=== PATIENT | female | born 1980 | race African-American/Black ===

== ENCOUNTER 2022-01-08 16:16 | Emergency (ER) | payer OTHER, SELFPAY ==
[2022-01-08 16:29] VITALS: BP 138/85; PULSE 90; RESP 18; TEMP 36.2; O2SAT 98
--- NOTE | 2022-01-08 17:16 | ED.URI ---
HPI - URI/Sore Throat General Chief Complaint: Upper Respiratory Infection Stated Complaint: Cough,Congestion,Shortness of Breath Time Seen by Provider: 01/08/22 17:09 Source: patient Mode of arrival: ambulatory Limitations: no limitations History of Present Illness HPI Narrative: patient presents today with a 2 day history of nasal congestion, rhinorrhea, nonproductive cough, shortness of breath with exertion, and intermittent wheezing. Denies fever. Reports history of asthma for which she uses her nebulizer treatments and inhalers with some relief. She has not tried any [id number]-slemrsb medication for her current symptoms. Related Data Home Medications Medication Instructions Recorded Confirmed albuterol sulfate 90 mcg/actuation 2 puff inhalation QID 03/02/19 01/08/22 aerosol inhaler fluticasone 113 mcg-salmeterol 14 1 puff inhalation DAILY 03/02/19 01/08/22 mcg/actuation breath activated powdr umeclidinium 62.5 mcg/actuation 2 inh inhalation DAILY 03/02/19 01/08/22 blister powder for inhalation (Incruse Ellipta) Allergies Allergy/AdvReac Type Severity Reaction Status Date / Time No Known Allergies Allergy Verified 01/08/22 16:21 Review of Systems Review of Systems: CONSTITUTIONAL: Denies body aches, fever, chills, or sweats. EYES: Denies visual changes, redness, or discharge. ENT: Denies sore throat, or otalgia.+ Rhinorrhea, congestion CARDIOVASCULAR: Denies chest pain, palpitations, or edema. RESPIRATORY: + cough, shortness of breath GASTROINTESTINAL: Denies abdominal pain, nausea, vomiting, or diarrhea. GENITOURINARY: Denies dysuria or hematuria. SKIN: Denies rash, itching, or wounds. MUSCULOSKELETAL: Denies back pain, joint pain, or myalgia. NEUROLOGIC: Denies headache, numbness, tingling, or weakness. PSYCH: Denies depression or anxiety. [facility] Past Medical History Medical History (Updated 01/08/22 @ 17:21 by Yoon Jauregui, [employer], ) Asthma Comments At time of signature, I have reviewed and agree with nursing past medical, surgical, social and family history unless otherwise noted. Please see nursing chart for further information. There is no relevant family history pertinent to the presenting complaint Exam Narrative: GENERAL: Well-appearing, well-nourished, and in no acute distress. HEAD: Normocephalic, atraumatic. EYES: EOMI. No redness or drainage. Conjunctivae normal. ENT: Mucous membranes pink and moist. Nares congested with rhinorrhea. TMs normal bilaterally. Throat normal. Uvula midline. NECK: Normal AROM. Supple. No lymphadenopathy. CHEST: No respiratory distress. decreased aeration throughout. Expiratory wheeze in the left upper lobe. HEART: Regular rate and rhythm. No murmur appreciated. Normal peripheral pulses. EXTREMITIES: Normal range of motion. No edema. SKIN: Warm, dry, no rash. Capillary refill normal. Normal skin turgor. NEURO: No focal deficits. Alert and oriented x3. Gait steady. PSYCH: Normal affect. No signs of depression or anxiety. Course Course Level of Care: Express Care Visit Vital Signs Vital signs: Vital Signs Temperature 97.2 F L 01/08/22 16:29 Pulse Rate 90 01/08/22 16:29 Respiratory Rate 18 01/08/22 16:29 Blood Pressure 138/85 01/08/22 16:29 Pulse Oximetry 98 01/08/22 16:29 Oxygen Delivery Room Air 01/08/22 16:29 Temperature 97.2 F L 01/08/22 16:29 Pulse Rate 90 01/08/22 16:29 Respiratory Rate 18 01/08/22 16:29 Blood Pressure 138/85 01/08/22 16:29 Pulse Oximetry 98 01/08/22 16:29 Oxygen Delivery Room Air 01/08/22 16:29 Reviewed. Pt has been instructed to follow up with her PCP regarding her elevated blood pressure today. MDM - URI/Sore Throat Differential Diagnosis Differential diagnosis: Likely upper respiratory infection, viral infection, bronchitis and other ( Asthma exacerbation) Critical Care Time Critical Care Time Critical Care Time: No Discharge Plan Dis
== END 2022-01-08 17:30 | disposition home or self-care (01) ==
PROVIDERS: Emergency Provider Nurse Practitioner
DX: J06.9 Acute upper respiratory infection, unspecified (principal); J45.901 Unspecified asthma with (acute) exacerbation
CPT/HCPCS: 99213; G0463

== ENCOUNTER 2022-02-25 15:15 | Emergency (ER) | payer OTHER, SELFPAY ==
[2022-02-25 15:32] VITALS: BP 130/86; PULSE 83; RESP 20; TEMP 36.1; O2SAT 100
[2022-02-25 15:35] VITALS: BP 130/86; PULSE 83; RESP 20; TEMP 36.1; O2SAT 100
--- NOTE | 2022-02-25 15:55 | ED.UPPEXIN ---
HPI - Extremity Injury (Upper) General Chief Complaint: Extremity Injury, Upper Stated Complaint: rt shoulder,arm and hand injury Time Seen by Provider: 02/25/22 15:42 Source: patient Mode of arrival: ambulatory Limitations: no limitations History of Present Illness HPI narrative: Patient presents today complaining of pain to her right arm. 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 She also reports some tingling to her 1st and 2nd fingers. She currently rates her pain 8/10 done which increases with any movement of the shoulder or elbow. She has tried no [id number] interventions prior to arrival. Related Data Home Medications Medication Instructions Recorded Confirmed budesonide-formoterol HFA 160 2 inh inhalation BID 02/25/22 02/25/22 mcg-4.5 mcg/actuation aerosol inhaler (Symbicort) tiotropium bromide 18 mcg capsule 18 mcg inhalation DAILY 02/25/22 02/25/22 with inhalation device (Spiriva with HandiHaler) Allergies Allergy/AdvReac Type Severity Reaction Status Date / Time No Known Allergies Allergy Verified 02/25/22 15:33 Review of Systems Review of Systems: CONSTITUTIONAL: Denies body aches, fever, chills, or sweats. EYES: Denies visual changes, redness, or discharge. ENT: Denies rhinorrhea, congestion, sore throat, or otalgia. CARDIOVASCULAR: Denies chest pain, palpitations, or edema. RESPIRATORY: Denies cough or dyspnea. GASTROINTESTINAL: Denies abdominal pain, nausea, vomiting, or diarrhea. GENITOURINARY: Denies dysuria or hematuria. SKIN: Denies rash, itching, or wounds. MUSCULOSKELETAL: Denies back pain. + right arm pain NEUROLOGIC: Denies headache, numbness, or weakness.+ tingling to right fingers PSYCH: Denies depression or anxiety. [facility] Past Medical History Medical History Asthma Comments At time of signature, I have reviewed and agree with nursing past medical, surgical, social and family history unless otherwise noted. Please see nursing chart for further information. There is no relevant family history pertinent to the presenting complaint Exam Narrative: GENERAL: Well-appearing, well-nourished, and in no acute distress. HEAD: Normocephalic, atraumatic. EYES: EOMI. No redness or drainage. Conjunctivae normal. ENT: Mucous membranes pink and moist. NECK: Normal AROM. CHEST: No respiratory distress. EXTREMITIES: Right arm: Tenderness to the lateral shoulder that extends to the upper biceps with palpation. No tenderness to the elbow or wrist. Patient does report pain to the elbow that increases with movement. She has almost active full range of motion of the elbow, but limited due to pain. Full active range of motion of the wrist. Patient has 90 degree lateral and anterior movement of the shoulder, but any further is limited due to pain. Patient refuses to attempt internal and external rotation. Distal sensation intact in all 5 fingers. Capillary refill normal. Radial pulse normal. No erythema or edema noted throughout the arm. SKIN: Warm, dry, no rash. Capillary refill normal. Normal skin turgor. NEURO: No focal deficits. Alert and oriented x3. Gait steady. PSYCH: Normal affect. No signs of depression or anxiety. Course Course Level of Care: Express Care Visit Vital Signs Vital signs: Vital Signs Temperature 97.0 F L 02/25/22 15:32 Pulse Rate 83 02/25/22 15:32 Respiratory Rate 20 02/25/22 15:32 Blood Pressure 130/86 02/25/22 15:32 Pulse Oximetry 100 02/25/22 15:32 Oxygen Delivery Room Air 02/25/22 15:32 Temperature 97.0 F L 02/25/22 15:35 Pulse Rate 83 02/25/22 15:35 Respiratory Rate 20 02/25/22 15:35 Blood Pressure 130/86 02/25/22 15:35 Pulse Oximetry 100 02/25/22 15:35 Oxygen Delivery Room Air 02/25/22 15:35 Reviewed. Pt has been instructed to follow up with her PCP regard
== END 2022-02-25 16:00 | disposition home or self-care (01) ==
PROVIDERS: Emergency Provider Nurse Practitioner
DX: S46.911A Strain of unspecified muscle, fascia and tendon at shoulder and upper arm level, right arm, initial encounter (principal); X58.XXXA Exposure to other specified factors, initial encounter; Y99.0 Civilian activity done for income or pay; J45.909 Unspecified asthma, uncomplicated
CPT/HCPCS: 99213; G0463

== ENCOUNTER 2022-12-14 09:12 | Emergency (ER) | payer OTHER, SELFPAY ==
--- NOTE | 2022-12-14 09:22 | ED.URI ---
HPI - URI/Sore Throat General Chief Complaint: Upper Respiratory Infection Stated Complaint: sorethroat Time Seen by Provider: 12/14/22 09:22 Source: patient, RN notes reviewed and old records reviewed Mode of arrival: ambulatory Limitations: no limitations History of Present Illness HPI Narrative: 42-year-old female presents to the [facility] complaints of sore throat since yesterday. No treatment prior to arrival. States that her ears have been feeling full. No other symptoms. Denies headache, fevers, chest pain, abdominal pain. Treatments prior to arrival: none Related Data Home Medications Medication Instructions Recorded Confirmed budesonide-formoterol HFA 160 2 inh inhalation BID 02/25/22 12/14/22 mcg-4.5 mcg/actuation aerosol inhaler (Symbicort) tiotropium bromide 18 mcg capsule 18 mcg inhalation DAILY 02/25/22 12/14/22 with inhalation device (Spiriva with HandiHaler) dupilumab 300 mg/2 mL subcutaneous 300 mg subcut WEEKLY 12/14/22 12/14/22 pen injector ([employer]) Allergies Allergy/AdvReac Type Severity Reaction Status Date / Time No Known Allergies Allergy Verified 12/14/22 09:22 Review of Systems Review of Systems: All systems reviewed & are unremarkable except as noted in HPI and below Constitutional: Constitutional: Reports no additional constitutional complaints Eyes: Eyes: Reports no additional eye complaints ENT: Reports as per HPI and Reports sore throat Cardiovascular: Cardiovascular: Reports no additional cardiovascular complaints, Denies chest pain and Denies dyspnea Respiratory: Respiratory: Reports no additional respiratory complaints, Denies chest congestion, Denies cough and Denies dyspnea Gastrointestinal: Gastrointestinal: Reports no additional gastrointestinal complaints, Denies abdominal pain, Denies nausea and Denies vomiting Musculoskeletal: Musculoskeletal: Reports no additional musculoskeletal complaints Integumentary/Breasts: Skin/Breast: Reports system reviewed and no additional complaints, except as docu Neurologic: Reports system reviewed and no additional complaints, except as documented Psychiatric: Psychiatric: Reports no additional psychiatric complaints Allergic/Immunologic: Allergic/Immunologic: Reports no additional allergic/immunologic complaints PMFSH Past Medical History Medical History (Updated 12/15/22 @ 15:13 by Lexus More APRN) Asthma Surgical History Surgical History (Updated 12/14/22 @ 09:39 by Lexus More APRN) No history of previous surgery Comments At the time of my signature, I reviewed and agree with the nursing past medical, surgical, social, and family history. There is no relevant family history pertinent to the patient complaint. Exam Const: General: cooperative, healthy appearing, comfortable, no acute distress, well developed, alert and well nourished Nutritional Appearance: well nourished Orientation/consciousness: patient oriented x3 Limitations: no limitations HENMT: Head: normal to inspection Ears: hearing grossly normal bilaterally, external ears normal, EAC's normal, mastoids normal, no periauricular adenopathy and TM abnormal wth effusion serous bilateral Face/Nose/Sinus: Normal external nose present, Normal nares present, Normal nasal mucous membranes and turbinates present, normal facial exam and face symmetric Face and sinus: normal facial exam and face symmetric Mouth: Yes Normal oral and palatal mucosa present, Yes lip normal and Yes moist mucous membranes Throat: posterior oropharynx normal, tonsils normal, uvula midline and postnasal drainage Eyes: General: appearance normal, both eyes and all related structures Alignment and Position: alignment normal Periorbital: periorbital findings normal Pupils: Equal, round and reactive pupils present EOM: EOMs intact bilaterally Neck: Neck: normal visual inspection, full ROM, no lymphadenopathy and no meningeal signs Chest: Chest palpation & ins
[2022-12-14 09:26] VITALS: BP 131/81; PULSE 73; RESP 18; TEMP 36.3; O2SAT 100
== END 2022-12-14 09:44 | disposition home or self-care (01) ==
PROVIDERS: Emergency Provider Nurse Practitioner
DX: J02.9 Acute pharyngitis, unspecified (principal); H65.03 Acute serous otitis media, bilateral; J45.909 Unspecified asthma, uncomplicated
CPT/HCPCS: 87081; 87880; 99213; G0463